=== PATIENT | female | born 1960 | race Caucasian/White ===

== ENCOUNTER 2016-11-03 23:09 | Emergency (ER) | payer MEDICARE, OTHER ==
[~2016-11-03] VITALS: Ht 160 cm; Wt 71.5 kg
[2016-11-03] MEDS ORDERED: OXYC10 PO (23:16)
[2016-11-03] MEDS ORDERED: ALPR1TAB7 PO (23:16)
[2016-11-03] MEDS ORDERED: MAGN30TA2 PO (23:16)
[2016-11-03] MEDS ORDERED: KDUR20 PO (23:16)
[2016-11-04 01:22] VITALS: BP 125/72
== END 2016-11-04 01:27 | disposition home or self-care (01) ==
LOC: EMS 23:10
DX: M16.12 Unilateral primary osteoarthritis, left hip (principal); Z88.1 Allergy status to other antibiotic agents
CPT/HCPCS: 73503; 99284